=== PATIENT | female | born 1955 | race Caucasian/White ===

== ENCOUNTER 2017-06-11 09:03 | Day surgery (SDC) | payer MEDICARE, MEDICAID ==
[~2017-06-11] VITALS: Ht 160 cm; Wt 57.6 kg
[~2017-06-11 09:03] MED LIST: AMLODIPINE5 MG PO; AMOXICILLIN500 MG PO; B-12 10001000 MCG; BL ASPIRIN325 MG PO; CALCI17 PO; CALCIUM; CLONIDINE0.1 MG PO; GABAPENTIN300 MG PO; LISINOPRIL20 MG PO; METOPROL TAR25 M1 PO; NORCO1 TA1 PO; OS-CAL 500500 M1 PO; PLAVIX75 MG PO; PRAVASTATIN SOD40 MG PO; PRAVASTATIN20 MG PO; PRILOSEC40 MG PO; VITAMIN B12; VITAMIN D32000 UNIT PO
[2017-06-11 10:43] VITALS: BP 123/74
== END 2017-06-11 10:50 | disposition home or self-care (01) ==
LOC: ENDO 09:03 → ORM 11:20 → ENDO 11:25 → ORM 12:15
PROVIDERS: ATTEND Surgery
PROC: 0DJD8ZZ Inspection of Lower Intestinal Tract, Via Natural or Artificial Opening Endoscopic (ICD-10-PCS; principal; 2017-06-11)
PROC: 0DB48ZX Excision of Esophagogastric Junction, Via Natural or Artificial Opening Endoscopic, Diagnostic (ICD-10-PCS; 2017-06-11)
DX: Z12.11 Encounter for screening for malignant neoplasm of colon (principal); R13.10 Dysphagia, unspecified; K20.9 Esophagitis, unspecified; I10 Essential (primary) hypertension; Z86.79 Personal history of other diseases of the circulatory system
CPT/HCPCS: 43239; G0121

== ENCOUNTER 2019-05-02 18:24 | Inpatient (IN) | payer MEDICARE, MEDICAID ==
[~2019-05-02] VITALS: Ht 160 cm; Wt 57.1 kg
[2019-05-02 19:29] LABS: HEMATOCRIT 39.9 % (37.0-47.0); HEMOGLOBIN 13.1 g/dl (12.0-16.0); IMMATURE GRANULOCYTES 0.6 % (0.0-5.0); MEAN CELL VOLUME 89.7 fL CALC (80.0-100.0); MEAN CORPUSCULAR HGB 29.4 pG CALC (26.0-32.0); MEAN CORPUSCULAR HGB CONC 32.8 g/L CALC (32.0-36.0); NEUT# 3.77 thou/uL (2.00-7.15); RED BLOOD COUNT 4.45 mill/uL (4.20-5.60); RED CELL DISTRI WIDTH 12.9 % (11.5-15.5)
[2019-05-02 19:44] LABS: ALKALINE PHOSPHATASE 118 u/l (38-126); BILIRUBIN, TOTAL 0.4 mg/dL (0.0-1.4); BUN 11 mg/dL (8-23); BUN/CREATININE RATIO 17 (12-20 (CALC)); CARBON DIOXIDE 33 mmol/l (22-30); CHLORIDE 94 mmol/l (95-108); CREATININE 0.6 mg/dL (0.5-1.0); GFR > 60 ML/MIN (>=60 (CALC)); GFR FOR AFR.AMER. > 60 ML/MIN (>=60 (CALC)); LIPASE 201 u/l (23-300); POTASSIUM 2.9 mmol/l (3.5-5.1); TOTAL PROTEIN 6.4 g/dL (6.3-8.2)
[2019-05-02 19:49] LABS: ALBUMIN 3.5 g/dL (3.2-5.0); ANION GAP 9 (6-22 (CALC)); SGOT/AST 42 u/l (9-36); SODIUM 133 mmol/l (137-146)
[2019-05-02 23:42] VITALS: BP 117/66
[2019-05-03 00:30] LABS: URINE BILIRUBIN - DIPSTICK NEGATIVE (NEGATIVE); URINE BLOOD DIPSTICK SMALL (NEGATIVE); URINE COLOR YELLOW; URINE GLUCOSE - DIPSTICK NEGATIVE (NEGATIVE); URINE KETONE TRACE mg/dL (NEGATIVE); URINE PROTEIN - DIPSTICK 30 mg/dL (NEG-TRACE); URINE UROBILINOGEN - DIPSTICK 0.2 E.U./dL (0.2)
[2019-05-03 00:31] LABS: URINE LEUK ESTERASE MODERATE (NEGATIVE); URINE NITRITE - DIPSTICK NEGATIVE (Negative)
[2019-05-03 00:35] LABS: URINE BACTERIA MANY hpf; URINE EPITHELIAL CELLS MODERATE EPI/hpf (0-FEW); URINE RBC 25-50 RBC/hpf (0-5); URINE WBC >100 WBC/hpf (0-5)
[2019-05-03 03:01] VITALS: BP 117/67
[2019-05-03 05:07] LABS: BUN 11 mg/dL (8-23); BUN/CREATININE RATIO 20 (12-20 (CALC)); CARBON DIOXIDE 32 mmol/l (22-30); CHLORIDE 98 mmol/l (95-108); CREATININE 0.5 mg/dL (0.5-1.0); GFR > 60 ML/MIN (>=60 (CALC)); GFR FOR AFR.AMER. > 60 ML/MIN (>=60 (CALC)); SODIUM 136 mmol/l (137-146)
[2019-05-03 05:16] LABS: ANION GAP 10 (6-22 (CALC)); POTASSIUM 3.5 mmol/l (3.5-5.1)
[2019-05-03 05:25] LABS: HEMATOCRIT 37.2 % (37.0-47.0); HEMOGLOBIN 12.5 g/dl (12.0-16.0); IMMATURE GRANULOCYTES 0.9 % (0.0-5.0); MEAN CELL VOLUME 88.6 fL CALC (80.0-100.0); MEAN CORPUSCULAR HGB 29.8 pG CALC (26.0-32.0); MEAN CORPUSCULAR HGB CONC 33.6 g/L CALC (32.0-36.0); NEUT# 2.81 thou/uL (2.00-7.15); RED BLOOD COUNT 4.2 mill/uL (4.20-5.60); RED CELL DISTRI WIDTH 12.8 % (11.5-15.5)
[2019-05-03 08:16] VITALS: BP 116/85
[2019-05-03 11:07] VITALS: BP 111/58
[2019-05-03 14:28] VITALS: BP 139/63
[2019-05-03 18:58] VITALS: BP 146/50
[2019-05-03 23:43] VITALS: BP 128/70
[2019-05-04 03:50] VITALS: BP 122/47
[2019-05-04 05:19] LABS: HEMOGLOBIN 12.9 g/dl (12.0-16.0); MEAN CORPUSCULAR HGB 29.5 pG CALC (26.0-32.0); MEAN CORPUSCULAR HGB CONC 33.1 g/L CALC (32.0-36.0); RED BLOOD COUNT 4.38 mill/uL (4.20-5.60); RED CELL DISTRI WIDTH 12.8 % (11.5-15.5)
[2019-05-04 05:41] LABS: ANION GAP 14 (6-22 (CALC)); BUN 9 mg/dL (8-23); BUN/CREATININE RATIO 20 (12-20 (CALC)); CARBON DIOXIDE 26 mmol/l (22-30); CHLORIDE 101 mmol/l (95-108); CREATININE 0.4 mg/dL (0.5-1.0); GFR > 60 ML/MIN (>=60 (CALC)); GFR FOR AFR.AMER. > 60 ML/MIN (>=60 (CALC)); MAGNESIUM 1.8 mg/dL (1.6-2.3); POTASSIUM 3.2 mmol/l (3.5-5.1); SODIUM 138 mmol/l (137-146)
[2019-05-04 08:10] VITALS: BP 111/59
[2019-05-04 10:44] VITALS: BP 130/60
[2019-05-04] MEDS ORDERED: LEVAQUIN750 MG PO (11:25)
[2019-05-04] MEDS ORDERED: PREDNISONE10 MG PO (11:25)
[2019-05-04] MEDS ORDERED: BIOTUSSIN PO (11:28)
[2019-05-04] MEDS ORDERED: IPRATROPIU0.5 MG/3 M IN (16:18)
== END 2019-05-04 17:35 | disposition home or self-care (01) | DRG 190 ==
LOC: ED 18:24 → ED-I 21:40 → ED 22:04 → MS2 22:05
PROVIDERS: Emergency Medicine; Nurse Practitioner Family; ADMIT Internal Medicine; ATTEND Internal Medicine
PROC: 3E02340 Introduction of Influenza Vaccine into Muscle, Percutaneous Approach (ICD-10-PCS; principal; 2019-05-04)
PROC: 3E0234Z Introduction of Serum, Toxoid and Vaccine into Muscle, Percutaneous Approach (ICD-10-PCS; 2019-05-04)
DX: J44.1 Chronic obstructive pulmonary disease with (acute) exacerbation (principal); J96.21 Acute and chronic respiratory failure with hypoxia; N39.0 Urinary tract infection, site not specified; I10 Essential (primary) hypertension; E78.5 Hyperlipidemia, unspecified; E87.6 Hypokalemia; R19.7 Diarrhea, unspecified; F17.200 Nicotine dependence, unspecified, uncomplicated; B96.20 Unspecified Escherichia coli [E. coli] as the cause of diseases classified elsewhere; Z86.79 Personal history of other diseases of the circulatory system; Z23 Encounter for immunization
CPT/HCPCS: G0378; J1650